=== PATIENT | male | born 2000 | race Caucasian/White ===

== ENCOUNTER 2019-12-16 21:05 | Emergency (ER) | payer SELFPAY ==
[2019-12-16] MEDS ORDERED: SODIUM CHLORIDE 0.9% (FLUSH) 10 ML SYG IV PRN (21:12)
[2019-12-16] MEDS ORDERED: TETANUS,DIPHTHERIA,PERTUSSIS 1 EA SYG IM ONE (21:14)
--- NOTE | 2019-12-16 21:29 | ED.PDOC ---
History of Present Illness - General Chief Complaint: Trauma Stated Complaint: head injury Time Seen by Provider: 12/16/19 21:08 - History of Present Illness Allergies/Adverse Reactions: Allergies NO KNOWN ALLERGY Allergy (Verified 12/16/19 21:16) Home Medications: Ambulatory Orders NK 12/16/19 Past Medical History (General) - Patient Medical History Hx Seizures: No Hx Stroke: No Hx Dementia: No Hx Asthma: No Hx of COPD: No Hx Cardiac Disorders: No Hx Congestive Heart Failure: No Hx Pacemaker: No Hx Hypertension: No Hx Thyroid Disease: No Hx Diabetes: No Hx Gastroesophageal Reflux: No Hx Renal Disease: No Hx Cancer: No Hx of HIV: No Hx Hepatitis C: No Hx MRSA: No Surgical History: no surgical history - Vaccination History Hx Tetanus, Diphtheria Vaccination: No Hx Influenza Vaccination: No - Social History Hx Tobacco Use: Yes Hx Alcohol Use: No - Female History Patient : No Family Medical History - Family History Mother Living Status: Still Living Progress - EKG/XRAY/CT CT Ordered: Yes Departure - Departure Disposition: Discharge to Home or Self Care Departure Forms: ED Discharge - Pt. Copy, Patient Portal Self Enrollment Home Medications: Ambulatory Orders NK 12/16/19
--- NOTE | 2019-12-16 21:39 | ED.PDOC ---
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 Patient had LOC for aprx 2-3 minutes. no seizure like activity, but did have bowel and urine incontinence. Patient complains of head pain and shoulder pain. Unsure when last tetanus. Denies numbness, tingling. states he has decrease hearing. no n/v, no change in vision. no weakness or numbness. was able to get and ambulate after injury. Allergies/Adverse Reactions: Allergies NO KNOWN ALLERGY Allergy (Verified 12/16/19 21:16) Home Medications: Ambulatory Orders NK 12/16/19 Review of Systems - Review of Systems Constitutional: Denies: chills, fever EENTM: States: ear pain, ear discharge. Denies: blurred vision, nose pain, nose congestion, throat pain, mouth pain Respiratory: Denies: cough, short of breath, stridor Cardiology: Denies: chest pain, palpitations Gastrointestinal/Abdominal: Denies: abdominal pain, nausea, vomiting Genitourinary: Denies: frequency, hematuria Musculoskeletal: States: back pain. Denies: joint pain, joint swelling, muscle pain, muscle stiffness, neck pain Skin: States: see HPI Neurological: States: headache. Denies: numbness, paresthesia, seizure, tingling, tremors, weakness Past Medical History (General) - Patient Medical History Hx Seizures: No Hx Stroke: No Hx Dementia: No Hx Asthma: No Hx of COPD: No Hx Cardiac Disorders: No Hx Congestive Heart Failure: No Hx Pacemaker: No Hx Hypertension: No Hx Thyroid Disease: No Hx Diabetes: No Hx Gastroesophageal Reflux: No Hx Renal Disease: No Hx Cancer: No Hx of HIV: No Hx Hepatitis C: No Hx MRSA: No Surgical History: no surgical history - Vaccination History Hx Tetanus, Diphtheria Vaccination: No Hx Influenza Vaccination: No - Social History Hx Tobacco Use: Yes Hx Alcohol Use: No - Female History Patient : No Family Medical History - Family History Mother Living Status: Still Living Physical Exam - Physical Exam Comments: tachycardic 104, otherwise vss. GENERAL: On backboard with C-collar in place. SKIN: Warm and well perfused. abrasian to right upper and lower back, no ecchymosis. HEAD: normocephalic without edema. Facial bones without deformities or tenderness. EYES: PERRL. No scleral icterus or conjunctival injection. Extraocular muscles intact without nystagmus or diplopia. No proptosis or enophthalmos. EARS: large larceration posterior right ear with complete flap of right external ear. Bilateral blood in External ears, unable to visualize TM. NOSE: No discharge, tenderness, laxity. No nasal septal hematoma. MOUTH: No malocclusion or trismus. Moist mucus membranes without blood. Posterior pharynx without erythema or exudate. NECK: Trachea midline. No discolorations or edema. Neck immobilized in cervical collar. CV: Regular rate and rhythm, Normal s1 and s2. No murmurs, rubs, or gallops. PV: Radial pulses 2+ bilaterally and symmetric. Dorsalis pedis pulses 2+ bilaterally and symmetric. 2+ capillary refill. No extremity edema. CHEST: No abrasions or ecchymosis. Chest symmetric with respirations. No chest wall tenderness. No crepitus. No step offs. Lungs are clear to auscultation isaias aterally. No rales, rhonchi, wheezing or stridor. ABDOMEN: No ecchymosis or abrasions. Soft, nondistended, nontender. Bowel tones normoactive. No masses or organomegaly. BACK: + abrasions, no skin openings, or ecchymosis. Spine without bony tenderness, no step offs. PELVIC: Pelvis stable, nontender to lateral compression and palpation of symphysis pubis. RECTAL: Normal tone. Stool without gross blood. : Normal external genitalia without blood at meatus. No ecchymosis or edema. MSK: No gross deformities or discolorations or lesions. Tolerates full range of motion of extremities without tenderness. NEURO: Alert and oriented to person, place, and time. GCS 15. CN II-XII intact. Sensation grossly intact. Strength 5/5 in bilateral UE and LE. Finger to nose intact bilaterally. - Michaela Coma Score Best Eye Response (Michaela): (4) open spontaneously Best Verbal Response (Linwood): (5) oriented Best Motor Response (Michaela): (6) obeys commands [place] Total: 15 Progress - Progress Progress: Due to prolong LOC and blood discharge concern for ICH will activate trauma. Spoke with [facility], who accepted patient for transfer. CT head/c-spine/t-spine/l-spine: no acute ich, fractures, pending radiology read. Tdap updated, given 50 mcg of fentanyl for pain. C-spine without midline tenderness, normal ROM. C-spine cleared. EKG shows sinus tachycardia with normal intervals, no ischemia. The data reviewed when caring for this patient included: nurse notes, ems records, etc. The history and assessments from nurses notes were reviewed and considered, and the patient's home medication list was also reviewed and considered. My assessment and the results of testing completed here in the ED were discussed with the patient/family. All questions were answered, and they express understanding of my assessment and the plan. vss, GCS REMAINS 15, patient was transferred to [facility] in stable condition. Carmencita Valdez DO #[id number] - Results/Orders Results/Orders: 12/16/19 21:12 IV Care:Saline Lock per Protoc QSHIFT Telemetry .ONCE Sodium Chloride 0.9% (Flush) [Saline Flush Syringe] 10 ml IV PRN PRN EKG Stat 12/16/19 21:13 EKG Assessment ONCE Pulse Oximetry Assessment DAILY 12/16/19 22:52 Sodium Chloride 0.9% 1000ML [Ns 1000 ml] 1,000 ml IVS ONCE 12/17/19 09:00 Pulse Ox Daily Laboratory Results WBC 15.4 K/mm3 (4.8-10.8) H 12/16/19 21:10 RBC 5.07 M/mm3 (4.70-6.10) 12/16/19 21:10 Hgb 16.5 gm/dL (14.0-18.0) 12/16/19 21:10 Hct 46.7 % (42.0-52.0) 12/16/19 21:10 MCV 92.0 fl (80.0-94.0) 12/16/19 21:10 MCH 32.5 pg (27.0-31.0) H 12/16/19 21:10 MCHC 35.3 g/dL (33.0-37.0) 12/16/19 21:10 RDW 13.3 % (11.5-14.5) 12/16/19 21:10 Plt Count 298 K/mm3 (130-400) 12/16/19 21:10 MPV 8.2 fl (7.40-10.4) 12/16/19 21:10 Absolute Neuts (auto) 9.80 K/uL (1.8-6.8) H 12/16/19 21:10 Absolute Lymphs (auto) 4.50 K/uL (1.0-3.4) H 12/16/19 21:10 Absolute Monos (auto) 0.90 K/uL (0.2-0.8) H 12/16/19 21:10 Absolute Eos (auto) 0.10 K/uL (0.0-0.4) 12/16/19 21:10 Absolute Basos (auto) 0.10 K/uL (0.0-0.1) 12/16/19 21:10 Neutrophils % 63.5 % (42.0-78.0) 12/16/19 21:10 Lymphocytes % 29.0 % (20.0-50.0) 12/16/19 21:10 Monocytes % 5.6 % (2.0-9.0) 12/16/19 21:10 Eosinophils % 1.0 % (1.0-5.0) 12/16/19 21:10 Basophils % 0.9 % (0.0-2.0) 12/16/19 21:10 PT 9.9 SECONDS (9.0-10.9) 12/16/19 21:10 INR 1.00 (0.9-1.15) 12/16/19 21:10 PTT (SP) 21.0 SECONDS (21.8-31.6) L 12/16/19 21:10 Sodium 138 mmol/L (135-145) 12/16/19 21:10 Potassium 3.6 mmol/L (3.6-5.0) 12/16/19 21:10 Chloride 101 mmol/L (101-111) 12/16/19 21:10 Carbon Dioxide 21 mmol/L (21-31) 12/16/19 21:10 Anion Gap 19.6 (12-18) H 12/16/19 21:10 BUN 17 mg/dL (7-18) 12/16/19 21:10 Creatinine 1.33 mg/dL (0.6-1.3) H 12/16/19 21:10 BUN/Creatinine Ratio 12.8 (10-20) 12/16/19 21:10 Random Glucose 111 mg/dL (70-105) H 12/16/19 21:10 Serum Osmolality 277.9 mOsm/L (275-295) 12/16/19 21:10 Calcium 9.6 mg/dL (8.4-10.2) 12/16/19 21:10 Total Bilirubin 0.8 mg/dL (0.2-1.0) 12/16/19 21:10 AST 70 IU/L (10-42) H 12/16/19 21:10 ALT 70 IU/L (10-60) H 12/16/19 21:10 Alkaline Phosphatase 57 IU/L (42-121) 12/16/19 21:10 Creatine Kinase 274 IU/L (38-174) H* 12/16/19 21:10 CK-MB (CK-2) 5.4 ng/mL (0.0-4.4) H* 12/16/19 21:10 CK-MB (CK-2) % 1.97 % (0.0-3.5) 12/16/19 21:10 Troponin I < 0.02 ng/mL (0.01-0.05) 12/16/19 21:10 Serum Total Protein 8.0 gm/dL (6.4-8.2) 12/16/19 21:10 Albumin 5.0 g/dl (3.2-5.5) 12/16/19 21:10 Globulin 3.0 gm/dL (2.3-3.5) 12/16/19 21:10 Albumin/Globulin Ratio 1.7 (1.1-1.9) 12/16/19 21:10 Amylase 81 U/L (28-100) 12/16/19 21:10 Ethyl Alcohol < 5.40 mg/dL (0-79) 12/16/19 21:10 - EKG/XRAY/CT CT Ordered: Yes Departure - Departure Clinical Impression: Laceration Concussion Qualifiers: Encounter type: initial encounter Loss of consciousness presence/duration: with LOC of 30 min or less Qualified Code(s): S06.0X1A - Concussion with loss of consciousness of 30 minutes or less, initial encounter ICD-10 Supporting Text: Blunt head trauma. Disposition: Transfer to Hospital Departure Forms: ED Discharge - Pt. Copy, Patient Portal Self Enrollment Instructions: DI for Trauma Home Medications: Ambulatory Orders NK 12/16/19 Transfer to Outside Facility - Transfer Information Decision to Transfer Date: 12/16/19 Decision to Transfer Time: :26 Reason for Transfer: specialized care not available Accepting Facility: [facility]
--- NOTE | 2019-12-16 22:12 | RAD ---
XR CHEST 1 VIEW HISTORY: Head injury, chest pain. COMPARISON: None. FINDINGS: The heart size is within normal limits. There is no pulmonary vascular congestion. No consolidation, pleural effusion, or pneumothorax is seen. No acute bony findings are seen. IMPRESSION: No evidence of acute cardiopulmonary disease. Electronically signed by: Marvin Luke MD 12/16/2019 10:10 PM CDT
--- NOTE | 2019-12-16 22:23 | CT ---
CT BRAIN, CERVICAL, THORACIC, AND LUMBAR SPINE HISTORY: Trauma. COMPARISON: None. TECHNIQUE: CT scan of the brain, cervical, thoracic, and lumbar spine was performed without IV contrast. This exam was performed according to our departmental dose-optimization program, which includes automated exposure control, adjustment of the mA and/or kV according to patient size and/or use of iterative reconstruction technique. FINDINGS: BRAIN: The ventricles, cisterns, and sulci are age-appropriate. No evidence of acute infarction, intracranial hemorrhage, extra-axial fluid collection, or midline shift. There is opacification of anterior right ethmoid air cell. The mastoids are clear. There is a small amount of subcutaneous air in the soft tissues adjacent to the right mastoid air cells but no fluid collection or foreign body is seen in this region. No depressed skull fracture. CERVICAL SPINE: No acute cervical fracture or prevertebral soft tissue swelling is seen. There is straightening of the normal cervical lordosis, which may be due to cervical collar, muscle spasm, or patient positioning. The facet joints and disc spaces are preserved. No advanced canal stenosis is identified. THORACIC SPINE: No acute fracture is seen. The thoracic alignment is maintained without static listhesis. The disc spaces are preserved. No advanced spinal canal stenosis is identified. The visualized lungs are clear. LUMBAR SPINE: No acute fracture is seen. The lumbar alignment is maintained. The disc spaces are preserved. No advanced canal stenosis. The sacroiliac joints are preserved. IMPRESSION: 1. No acute intracranial hemorrhage. 2. No acute spinal fracture. 3. Subcutaneous air overlying the right mastoid air cells, which may represent adjacent soft tissue laceration. No foreign body or fluid collection is seen in this region. Electronically signed by: Marvin Luke MD 12/16/2019 10:21 PM CDT
[2019-12-16] MEDS ORDERED: ONDANSETRON INJ 4 MG/2 ML VIAL IV ONE (22:42)
[2019-12-16] MEDS ORDERED: fentaNYL CITRATE INJ 50 MCG/ML AMP IV ONE (22:42)
[2019-12-16] MEDS ORDERED: SODIUM CHLORIDE 0.9% 1000ML 1,000 ML IVS ONE (22:52)
[2019-12-16 22:53] VITALS: TEMP 97; O2SAT 95
[2019-12-16 23:35] VITALS: BP 110/79
== END 2019-12-16 23:17 | disposition short-term general hospital (02) ==
LOC: ER 21:05
DX: S06.0X1A Concussion with loss of consciousness of 30 minutes or less, initial encounter (principal); S01.311A Laceration without foreign body of right ear, initial encounter; S30.810A Abrasion of lower back and pelvis, initial encounter; S20.411A Abrasion of right back wall of thorax, initial encounter; R00.0 Tachycardia, unspecified; H92.23 Otorrhagia, bilateral; R15.9 Full incontinence of feces; R32 Unspecified urinary incontinence; Z87.891 Personal history of nicotine dependence; W55.22XA Struck by cow, initial encounter; Y93.89 Activity, other specified; Y92.9 Unspecified place or not applicable
CPT/HCPCS: 36415; 70450; 71045; 72125; 72128; 72131; 80053; 80320; 82150; 82550; 82553; 84484; 85025; 85610; 85730; 90471; 90715; 93005; J2405; J3010; J7030